=== PATIENT | female | born 1950 | race Caucasian/White ===

== ENCOUNTER 2019-11-19 07:34 | Day surgery (SDC) | payer OTHER ==
[~2019-11-19] VITALS: Ht 157.5 cm; Wt 54.4 kg
--- NOTE | ~2019-11-19 | O ---
[facility] [place] [address] OPERATIVE REPORT Name: KP DERAS Room #: 150-6 [facility] M.R.#: [id number] Admission: 11/19/19 Attend Phys: Duane Cole MD Discharge: Date of : 48 Report #: [id number] THIS REPORT FOR: cc: April Chavez MD,April Cole,Duane Bojorquez MD ~ CC: April Cole DATE OF SERVICE: 11/19/2019 ALIGNMENT TECHNICIAN: None. PREOPERATIVE DIAGNOSIS: Bilateral upper lid ptosis with superior visual field defects both eyes. POSTOPERATIVE DIAGNOSIS: Bilateral upper lid ptosis with superior visual field defects both eyes. OPERATION PERFORMED: Bilateral upper lid functional ptosis repair. ALIGNMENT TECHNICIAN: None. ANESTHESIA: Local with IV sedation. COMPLICATIONS: None. INDICATIONS FOR PROCEDURE: This patient has bilateral upper lid ptosis with superior visual field loss both eyes. Visual field testing demonstrates dense superior visual defects. Retesting with the upper lid elevated shows an improvement in visual field loss of over 30% and in excess of 12 degrees. The current procedure is being undertaken in order to improve the patient's visual function. Informed consent was obtained to include but not limited to the risk of loss of vision, bleeding, infection, scarring, failure to improve the problem and need for further surgery, such as adjustment of lid height. DESCRIPTION OF PROCEDURE: The patient was taken to the operating room, where 2% Xylocaine with epinephrine mixed with equal parts of 0.75% Marcaine with Wydase was administered transcutaneously to each upper lid. The patient was then prepped and draped in the usual sterile fashion. An upper lid crease incision was then made bilaterally and the dissection was carried down until the orbital septum was identified. The orbital septum was [facility] [address] [place] [address] OPERATIVE REPORT Name: KP DERAS Room #: 150-6 [facility]..#: [id number] Admission: 11/19/19 Attend Phys: Duane Cole MD Discharge: Date of : 48 Report #: [id number] then cleared and the preaponeurotic fat identified. The levator aponeurosis was then disinserted from the anterior surface of the tarsal plate and dissected free in the avascular Connor's muscle plane. The aponeurosis was then advanced and reattached to the anterior surface of the tarsal plate with interrupted mattress 6-0 Novafil sutures on each side, adjusting for height and contour. The redundant aponeurosis was then amputated. The incision was then closed with multiple interrupted 6-0 chromic sutures that were used to recreate an upper lid crease. The skin was closed with a running 6-0 plain gut suture. The wound was then cleaned and dressed with ophthalmic antibiotic ointment followed by a Telfa pad. The patient was transported to the recovery area, having tolerated the procedure well with no anesthesia or operative complications being noted. By: [id number] Duane Cole MD /[employer]
[~2019-11-19 07:34] MED LIST: ASA81BEC PO; ATORVASTATIN CA80 MG PO; CARVEDILOL6.25 M1 PO; COMBIGAN EYE DR10 ML OPHTHALMIC; METFORMIN HCL500 MG PO; MULTI VITAMIN1 EACH PO; NEXIUM20 MG PO; NORVASC5 MG PO; PLAVIX 75 MG TA75 MG PO; QUINAPRIL HCL20 MG PO; VASCEPA1 GM PO; VENLAFAXINE HC150 M1 PO
[2019-11-19 09:11] VITALS: BP 108/46
== END 2019-11-19 10:55 | disposition home or self-care (01) ==
LOC: OR 07:34 → TBA 07:35 → OR 10:55
DX: H02.413 Mechanical ptosis of bilateral eyelids (principal); H53.462 Homonymous bilateral field defects, left side; H53.461 Homonymous bilateral field defects, right side; I10 Essential (primary) hypertension; E11.9 Type 2 diabetes mellitus without complications; E78.5 Hyperlipidemia, unspecified; F32.9 Major depressive disorder, single episode, unspecified; F41.9 Anxiety disorder, unspecified; K21.9 Gastro-esophageal reflux disease without esophagitis; I25.2 Old myocardial infarction; Z98.890 Other specified postprocedural states; Z79.899 Other long term (current) drug therapy; Z91.040 Latex allergy status; Z87.891 Personal history of nicotine dependence
CPT/HCPCS: 50010; 50101; 50386; 50398; 51636; 56528; 56531; 62110; 62850; 70005